=== PATIENT | female | born 1930 | race African-American/Black ===

== ENCOUNTER 2018-01-16 07:59 | Inpatient (IN) | payer MEDICARE, MEDICAID ==
[~2018-01-16] VITALS: Ht 162.6 cm; Wt 74.8 kg
[2018-01-16 09:11] LABS: BASOPHILS % 0.7 % (0.0-2.0); EOSINOPHILS % 0.1 % (0.0-5.0); HEMATOCRIT. 45.5 % (36.0-48.0); HEMOGLOBIN. 14.8 g/dL (12.0-16.0); LYMPHOCYTES % 17.4 % (20.0-50.0); MEAN CORPUSCULAR HEMOGLOBIN 29.7 pg (28.0-32.0); MEAN PLATELET VOLUME 7.4 fl (7.4-10.4); NEUTROPHILS % 78.8 % (40.0-76.0); PLATELET 227 x1000/uL (130-400); RED CELL DISTRIBUTION WIDTH 13.4 % (11.6-14.6)
[2018-01-16 09:22] LABS: ETHANOL BLOOD < 10 mg/dL
[2018-01-16 09:32] LABS: CHLORIDE 107 mEq/L (98-107)
[2018-01-16] MEDS ORDERED: ASPIRIN 325MG EC TABLET PO ONE (10:15)
[2018-01-16] MEDS ORDERED: DEXTROSE 50% WATER 50ML SYRINGE IV PRN ×2 (11:15)
[2018-01-16] MEDS ORDERED: BLOOD SUGAR DIAGNOSTIC STRIP TEST SCH (13:00)
[2018-01-16] MEDS: BLOOD SUGAR DIAGNOSTIC STRIP TEST SCH ×3 (13:00→21:16)
[2018-01-16 14:27] LABS: T4 FREE 1.06 ng/dL (0.76-1.46)
[2018-01-16 14:43] LABS: FOLIC ACID (FOLATE) SERUM >20 ng/mL ng/mL (>5.38)
[2018-01-16 14:54] LABS: VITAMIN B12 SERUM 648 pg/mL (211-911)
[2018-01-16] MEDS ORDERED: CINA30 PO (15:06)
[2018-01-16] MEDS ORDERED: LOSA50TA20 PO (15:06)
[2018-01-16] MEDS ORDERED: PRAV20TA57 PO (15:06)
[2018-01-16] MEDS ORDERED: METFORMIN PO (15:06)
[2018-01-16] MEDS ORDERED: VERA240C2 PO (15:06)
[2018-01-16 15:20] VITALS: BP 161/72
[2018-01-16] MEDS: LOSARTAN POTASSIUM 25 MG TABLET PO SCH ×2 (16:25→22:18)
[2018-01-16 20:00] VITALS: BP 144/66
[2018-01-16] MEDS ORDERED: DIPHENHYDRAMINE 50MG/ML VIAL IV PRN (20:00)
[2018-01-16] MEDS ORDERED: CLONIDINE 0.1MG TABLET PO PRN (20:00)
[2018-01-16] MEDS ORDERED: GUAIFENESIN 200MG/10ML SUGAR FREE UDC PO PRN (20:00)
[2018-01-16] MEDS ORDERED: MAGNESIUM/ALUMINUM HYDROXIDE/SIMETHICONE 30ML UDC PO PRN (20:00)
[2018-01-16] MEDS ORDERED: ACETAMINOPHEN 325MG TABLET PO PRN (20:00)
[2018-01-16] MEDS ORDERED: ONDANSETRON HCL 4MG/2ML INJ IV PRN (20:00)
[2018-01-16] MEDS ORDERED: IPRATROPIUM/ALBUTEROL 0.5-3(2.5)MG/3ML NEB INH PRN (20:00)
[2018-01-16] MEDS ORDERED: MAGNESIUM HYDROXIDE 400MG/5ML 30ML UDC PO PRN (20:00)
[2018-01-16] MEDS ORDERED: ZOLPIDEM TARTRATE 5MG TABLET PO PRN (21:00)
[2018-01-16] MEDS: SODIUM CHLORIDE 0.9% INJ 3ML FLUSH IVF SCH (21:18)
[2018-01-16] MEDS: VERAPAMIL HCL 80 MG TABLET PO SCH (21:38)
[2018-01-17] VITALS: BP 130/66
[2018-01-17 04:00] VITALS: BP 134/67
[2018-01-17] MEDS: BLOOD SUGAR DIAGNOSTIC STRIP TEST SCH ×4 (06:33→21:00)
[2018-01-17] MEDS: VERAPAMIL HCL 80 MG TABLET PO SCH ×3 (06:33→21:11)
[2018-01-17] MEDS: SODIUM CHLORIDE 0.9% INJ 3ML FLUSH IVF SCH ×3 (06:37→23:39)
[2018-01-17 07:42] LABS: BASOPHILS % 0.4 % (0.0-2.0); EOSINOPHILS % 1.6 % (0.0-5.0); HEMATOCRIT. 42.1 % (36.0-48.0); HEMOGLOBIN. 14.2 g/dL (12.0-16.0); MEAN CORPUSCULAR HEMOGLOBIN 31.1 pg (28.0-32.0); MEAN CORPUSCULAR VOLUME 92.4 fL (81.0-99.0); MEAN PLATELET VOLUME 7.7 fl (7.4-10.4); MONOCYTES % 7.5 % (2.0-8.0); NEUTROPHILS % 46.5 % (40.0-76.0); PLATELET 223 x1000/uL (130-400); RED BLOOD CELL COUNT 4.56 mill/uL (4.2-5.4); RED CELL DISTRIBUTION WIDTH 13.4 % (11.6-14.6)
[2018-01-17 07:47] LABS: CHLORIDE 107 mEq/L (98-107)
[2018-01-17 07:56] LABS: CREATINE KINASE MB FRACTION 3.4 ng/mL (0.5-3.6); LDL CHOLESTEROL 70 mg/dL (5-100)
[2018-01-17 07:58] LABS: CREATINE KINASE 235 IU/L (26-192); HDL CHOLESTEROL 56 mg/dL (40-59)
[2018-01-17 08:00] VITALS: BP 123/68
[2018-01-17] MEDS: LOSARTAN POTASSIUM 25 MG TABLET PO SCH ×2 (08:48→21:11)
[2018-01-17] MEDS: CLOPIDOGREL 75MG TABLET PO SCH (08:48)
[2018-01-17] MEDS ORDERED: ASPIRIN 325MG EC TABLET PO SCH ×2 (09:00)
[2018-01-17 12:00] VITALS: BP 145/76
[2018-01-17 20:00] VITALS: BP 128/59
[2018-01-18] VITALS: BP 130/60
[2018-01-18 04:00] VITALS: BP 152/65
[2018-01-18] MEDS: VERAPAMIL HCL 80 MG TABLET PO SCH ×2 (05:59→13:58)
[2018-01-18] MEDS: BLOOD SUGAR DIAGNOSTIC STRIP TEST SCH (06:05)
[2018-01-18 08:00] VITALS: BP 136/68
[2018-01-18] MEDS: LOSARTAN POTASSIUM 25 MG TABLET PO SCH (08:39)
[2018-01-18] MEDS: CLOPIDOGREL 75MG TABLET PO SCH (08:39)
[2018-01-18] MEDS ORDERED: DEXTROSE 50% WATER 50ML SYRINGE IV PRN (09:00)
[2018-01-18] MEDS ORDERED: BLOOD SUGAR DIAGNOSTIC STRIP TEST SCH (11:45)
[2018-01-18 12:00] VITALS: BP 142/65
[2018-01-18] MEDS ORDERED: INSULIN LISPRO 100 UNITS/ML SUBCUT SCH (12:15)
[2018-01-18 15:31] VITALS: BP 136/68
== END 2018-01-18 16:30 | disposition home health service (06) | DRG 65 ==
LOC: ER 08:25 → 5WST 10:19 → EDBEDREQ 10:20 → ENRESERV 12:40
PROVIDERS: ADMIT Internal Medicine; ATTEND Internal Medicine
DX: I63.9 Cerebral infarction, unspecified (principal); G81.91 Hemiplegia, unspecified affecting right dominant side; I10 Essential (primary) hypertension; E78.00 Pure hypercholesterolemia, unspecified; E11.9 Type 2 diabetes mellitus without complications; M19.90 Unspecified osteoarthritis, unspecified site; R47.81 Slurred speech; Z79.02 Long term (current) use of antithrombotics/antiplatelets; Z90.710 Acquired absence of both cervix and uterus
CPT/HCPCS: 36415; 70450; 70544; 70553; 80053; 80061; 82550; 82553; 82607; 82746; 82962; 83036; 83735; 83880; 84439; 84443; 84481; 84484; 85025; 85379; 93005; 93306; 93880; 97162; 97166; 99285; A4565; G0482

== ENCOUNTER 2018-10-15 11:26 | Emergency (ER) | payer MEDICARE, MEDICAID ==
[~2018-10-15] VITALS: Ht 162.6 cm; Wt 67.0 kg
[~2018-10-15 11:26] MED LIST: CINA30 PO; LOSA50TA41 PO; METFORMIN PO; PRAV20TA57 PO; VERA240C2 PO
[2018-10-15 11:51] VITALS: BP 156/72
[2018-10-15] MEDS ORDERED: ACETAMINOPHEN WITH CODEINE 300/30MG TABLET PO ONE (12:30)
[2018-10-15] MEDS ORDERED: IBUPROFEN 600MG TABLET PO ONE (12:45)
== END 2018-10-15 13:06 | disposition home or self-care (01) ==
LOC: ER 11:26
DX: S63.91XA Sprain of unspecified part of right wrist and hand, initial encounter (principal); E11.9 Type 2 diabetes mellitus without complications; I10 Essential (primary) hypertension; M19.90 Unspecified osteoarthritis, unspecified site; X58.XXXA Exposure to other specified factors, initial encounter; Y93.89 Activity, other specified; Y92.9 Unspecified place or not applicable; Z90.710 Acquired absence of both cervix and uterus
CPT/HCPCS: 73120; 99283